=== PATIENT | male | born 1995 ===

== ENCOUNTER 2021-07-31 03:00 | Emergency (ER) | payer SELFPAY ==
[~2021-07-31] VITALS: Ht 167.6 cm; Wt 61.0 kg
[2021-07-31] MEDS ORDERED: IBUPROFEN 600MG TABLET PO ONE (04:30)
[2021-07-31] MEDS ORDERED: IBUP-2029 MT (05:49)
[2021-07-31 06:18] VITALS: BP 135/76
== END 2021-07-31 06:19 | disposition home or self-care (01) ==
LOC: EDSEX 03:00 → ER 03:00
DX: S16.1XXA Strain of muscle, fascia and tendon at neck level, initial encounter (principal); M79.632 Pain in left forearm; V43.62XA Car passenger injured in collision with other type car in traffic accident, initial encounter; Y93.89 Activity, other specified; Y92.410 Unspecified street and highway as the place of occurrence of the external cause
CPT/HCPCS: 71045; 72040; 73090; 99284